=== PATIENT | male | born 1950 | race Two or more races ===

== ENCOUNTER 2025-09-03 19:08 | Emergency (ER) | payer OTHER ==
[~2025-09-03] VITALS: Ht 177.8 cm; Wt 79.4 kg
[2025-09-03 23:38] LABS: BASO % 0.4 % (0.1-1.2); EOS # 0.10 (0.04-0.54); EOS % 1.2 % (0.7-7.0); LYMPH # 3.04 (1.18-3.74); LYMPH % 36.5 % (19.3-53.1); MEAN PLATELET VOLUME 12.40 fl (9.4-12.4); MONO # 0.77 (0.24-0.82); MONO % 9.3 % (4.7-12.5); NEUT # 4.38 (1.56-6.13); NEUT % 52.6 % (34.0-71.1); RED CELL DISTRIBUTION WIDTH 13.2 % (11.6-14.4)
[2025-09-04 01:03] LABS: INR 1.05
[2025-09-04 01:09] LABS: ALT/SGPT 20.0 U/L (12-78); AST/SGOT 13.0 U/L (15-37); BILIRUBIN TOTAL 0.6 mg/dL (0.3-1.2); BUN CREA RATIO 15.0 (7.0-25.0); CREATININE SERUM 1.09 mg/dL (0.70-1.30); GFR 66.31; GLOBULINA 4.0 G/DL (2.4-3.5); GLUCOSE FASTING 135.0 mg/dL (65-100); OSMOLALITY SERUM 284.0 MOSM/KG (275-295)
[2025-09-04] MEDS ORDERED: SALINE MIST45 ML (01:50)
[2025-09-04] MEDS ORDERED: 0.9 % SODIUM CHLORIDE 1,000 ML IV SCH (02:00)
[2025-09-04] MEDS ORDERED: NITROGLYCERIN0.4 MG SL (04:12)
== END 2025-09-04 04:24 | disposition home or self-care (01) ==
LOC: ER 19:09
PROVIDERS: Preventive Medicine Public Health & General Preventive Medicine
DX: R07.9 Chest pain, unspecified (principal); I10 Essential (primary) hypertension; K21.9 Gastro-esophageal reflux disease without esophagitis; Z88.1 Allergy status to other antibiotic agents; I20.1 Angina pectoris with documented spasm; E11.9 Type 2 diabetes mellitus without complications